=== PATIENT | female | born 1970 | race Caucasian/White ===

== ENCOUNTER → 2016-12-17 | Outpatient (REF) | payer BC | LOC: M LAB REF 17:05 | PROVIDERS: ATTEND Physician Assistant | DX: R35.0 Frequency of micturition (principal) ==

== ENCOUNTER 2017-04-10 01:37 | Emergency (ER) | payer BC ==
[2017-04-10 02:47] LABS: BASO % 0.4 % (0.0-1.0); EOS # 0.2 K/mm3 (0.0-0.50); EOS % 1.8 % (0.0-3.0); LARGE UNSTAINED CELL # 0.1 K/mm3 (0.0-0.4); LARGE UNSTAINED CELL % 1.2 % (0.0-4.0); LYMPH # 2.8 K/mm3 (1.5-4.5); LYMPH % 25.6 % (24.0-44.0); MEAN CORPUSCULAR HEMOGLOBIN 28.7 pg (27.0-33.0); MEAN CORPUSCULAR HGB CONC 33.5 g/dl (32.0-36.5); MEAN CORPUSCULAR VOLUME 85.7 fl (80.0-96.0); MONO # 0.6 K/mm3 (0.0-0.8); MONO % 5.3 % (0.0-5.0); NEUTROPHILS # 6.8 K/mm3 (1.8-7.7); NEUTROPHILS % 65.8 % (36.0-66.0); PLATELET COUNT, AUTOMATED 219 k/mm3 (150-450); RED CELL DISTRIBUTION WIDTH 13.3 % (11.5-14.5); WHITE BLOOD COUNT 10.3 K/mm3 (4.0-10.0)
[2017-04-10 03:10] LABS: ANION GAP 6 MEQ/L (8-16); BLOOD UREA NITROGEN 18 MG/DL (7-18); CALCIUM LEVEL 8.9 MG/DL (8.5-10.1); CARBON DIOXIDE LEVEL 24 MEQ/L (21-32); CHLORIDE LEVEL 113 MEQ/L (98-107); CREATININE FOR GFR 0.59 MG/DL (0.55-1.02); GLOMERULAR FILTRATION RATE > 60.0 (>58); GLUCOSE, FASTING 109 MG/DL (70-105); POTASSIUM SERUM 3.8 MEQ/L (3.5-5.1); SODIUM LEVEL 143 MEQ/L (136-145)
[2017-04-10] MEDS ORDERED: ISOVUE-370 76% 100ML VIAL (Q9967) As Ordered ONE (03:28)
--- NOTE | 2017-04-10 05:08 | REP ---
Clinical: Acute chest pain. Technique: Axial contrast enhanced images from the thoracic inlet to the upper abdomen using 100 ml Isovue 370 intravenous contrast material with coronal and sagittal re-formations. Findings: Satisfactory enhancement of the pulmonary vasculature is achieved and no filling defects are identified to suggest pulmonary embolus. Thoracic aorta is normal caliber without aneurysm or dissection. Heart and pericardium are normal. Bilateral lung gallagher are well aerated and without acute pulmonary parenchymal consolidation or atelectasis. Mild bronchitis cannot be excluded. No nodule or mass lesion. No pleural effusion/reaction. No pneumothorax. No adenopathy. Impression: No evidence for pulmonary embolus. Mild bronchitis cannot be excluded. No definite acute pleuroparenchymal or mediastinal process. Signed by Luis Young MD 04/10/2017 04:58 A
[2017-04-10 06:28] VITALS: BP 149/87
[2017-04-10] MEDS ORDERED: NORCO 5/325MG TABLET (BULK FOR ED) PO ONE (06:30)
--- NOTE | 2017-04-11 09:11 | ECGEPIP ---
Stationary ECG Study [facility] - ED Test Date: 2017-04-10 Pat Name: JANIE TENORIO Department: Room: - Gender: F Range Aide: clotilde : 1970 Requested By: KIERRA Hoskins Order Number: [id number] Reading MD: Mee Lee Measurements Intervals [place] Rate: 100 P: 48 ID: [id number] QRS: 3 QRSD: 102 T: 38 QT: 335 QTc: 433 Interpretive Statements SINUS TACHYCARDIA POSSIBLE LEFT ATRIAL ENLARGEMENT ABNORMAL RHYTHM ECG NO PRIOR FOR COMPARISON Electronically Signed On 04-11-2017 9:10:37 EDT by Mee Lee
--- NOTE | 2017-04-11 09:13 | ECGEPIP ---
Stationary ECG Study [facility] - ED Test Date: 2017-04-10 Pat Name: JANIE TENORIO Department: Room: - Gender: F Certified Medical Aide: tk : 1970 Requested By: KIERRA Hoskins Order Number: [id number] Reading MD: Mee Lee Measurements Intervals [place] Rate: 86 P: 52 [place]: 171 QRS: 19 QRSD: 103 T: 37 QT: 353 QTc: 424 Interpretive Statements SINUS RHYTHM DECREASED RATE 1:49 Electronically Signed On 04-11-2017 9:12:59 EDT by Mee Lee
[2017-06-13] MEDS ORDERED: METO50TA7 PO (14:59)
[2017-06-13] MEDS ORDERED: LOSA100T36 PO (14:59)
[2017-06-13] MEDS ORDERED: IBUP-1022 PO (14:59)
== END 2017-04-10 07:02 | disposition home or self-care (01) ==
LOC: M ED 03:35
DX: R07.89 Other chest pain (principal); I10 Essential (primary) hypertension; Z82.49 Family history of ischemic heart disease and other diseases of the circulatory system
CPT/HCPCS: 36415; 71275; 80048; 82550; 82553; 85025; 93005; 93041; 94760; 99285; Q9967

== ENCOUNTER 2017-06-20 07:39 | Day surgery (SDC) | payer BC ==
[2017-06-20] VITALS (8 sets, daily range): BP systolic 140–200; BP diastolic 78–118
[~2017-06-20] VITALS: Ht 165.1 cm; Wt 98.4 kg
[~2017-06-20 07:39] MED LIST: IBUP-1022 PO; LOSA100T36 PO; METO50TA7 PO
[2017-06-20] MEDS ORDERED: LR 1,000 ML IV SCH ×2 (08:00→13:45)
[2017-06-20] MEDS ORDERED: LR 1,000 ML IV ONE (08:00)
[2017-06-20 08:10] LABS: MEAN CORPUSCULAR HEMOGLOBIN 29.5 pg (27.0-33.0); MEAN CORPUSCULAR HGB CONC 33.9 g/dl (32.0-36.5); MEAN CORPUSCULAR VOLUME 86.9 fl (80.0-96.0); RED CELL DISTRIBUTION WIDTH 14.1 % (11.5-14.5); WHITE BLOOD COUNT 10.1 K/mm3 (4.0-10.0)
[2017-06-20] MEDS ORDERED: METOPROLOL SUCC (TopROL XL) 50MG **XL** TAB PO SCH (09:00)
[2017-06-20 09:20] LABS: CONTROL LINE UCG INT CTR LINE PRESENT
[2017-06-20] MEDS ORDERED: SCOPOLAMINE 1.5 MG TRANSDERMAL As Ordered ONE (10:36)
[2017-06-20] MEDS ORDERED: SCOPOLAMINE 1.5 MG TRANSDERMAL TOP ONE (10:45)
[2017-06-20] MEDS ORDERED: fentaNYL 250 MCG/5 ML INJECTION (J3010) As Ordered ONE (11:15)
[2017-06-20] MEDS ORDERED: ROCURONIUM BROMIDE 50 MG/5 ML VIAL/SYRINGE As Ordered ONE (11:15)
[2017-06-20] MEDS ORDERED: MIDAZOLAM INJ 2 MG/2 ML VIAL (J2250) As Ordered ONE (11:15)
[2017-06-20] MEDS ORDERED: LIDOCAINE 2% INJ 100 MG/5 ML SDV (FOR ANES.) As Ordered ONE (11:15)
[2017-06-20] MEDS ORDERED: PROPOFOL 200 MG/20 ML VIAL As Ordered ONE (11:15)
[2017-06-20] MEDS ORDERED: GLYCOPYRROLATE INJ 0.2 MG/ML 2 ML VIAL As Ordered ONE (11:15)
[2017-06-20] MEDS ORDERED: NEOSTIGMINE 1MG/ML 5 ML SYRINGE (J2710) As Ordered ONE (11:15)
[2017-06-20] MEDS ORDERED: dexameTHASONE 4 MG/ML 1ML VIAL (J1100) As Ordered ONE (11:16)
[2017-06-20] MEDS ORDERED: ONDANSETRON 4MG/2ML VIAL (J2405) As Ordered ONE (11:16)
[2017-06-20] MEDS ORDERED: KETOROLAC 60 MG/2 ML VIAL (J1885) As Ordered ONE (11:16)
[2017-06-20] MEDS ORDERED: HYDROmorphone HCL 2 MG/ML 1ML VIAL (J1170) As Ordered ONE (12:06)
[2017-06-20] MEDS ORDERED: LIDOCAINE W/EPINEPHRINE 1% 20ML VIAL As Ordered ONE (12:52)
[2017-06-20] MEDS ORDERED: MORPHINE 1MG/ML IN 0.9% NACL 100ML IV BAG As Ordered ONE (13:26)
[2017-06-20] MEDS ORDERED: diphenhydrAMINE INJ 50MG/ML VIAL (J1200) IV PRN (13:45)
[2017-06-20] MEDS ORDERED: NALOXONE INJ 0.4 MG/1 ML VIAL (J2310) IV PRN (13:45)
[2017-06-20] MEDS ORDERED: MORPHINE 2 MG/ML 1ML SYRINGE IV PRN (13:45)
[2017-06-20] MEDS ORDERED: MORPHINE 1MG/ML IN 0.9% NACL 100ML IV BAG IV PRN (13:45)
[2017-06-20] MEDS ORDERED: ONDANSETRON 4MG/2ML VIAL (J2405) IV PRN (13:45)
[2017-06-20] MEDS ORDERED: EPIDURAL/PCA KEYS XX PRN (13:45)
[2017-06-20] MEDS ORDERED: NALBUPHINE HCL 10 MG/ML AMP (J2300) IV PRN (13:45)
[2017-06-20] MEDS ORDERED: fentaNYL 100 MCG/2 ML INJECTION (J3010) IV PRN (13:45)
--- NOTE | 2017-06-20 14:43 | RO ---
DATE OF PROCEDURE: 06/20/2017 PREOPERATIVE DIAGNOSIS: Symptomatic pelvic prolapse. POSTOPERATIVE DIAGNOSIS: Symptomatic pelvic prolapse. PROCEDURE: Total vaginal hysterectomy with bilateral salpingectomy. The patient retained her ovaries. She had a colporrhaphy with anterior and posterior repair and perineorrhaphy and cystourethroscopy. SURGEON: Dr. Lillian Dorantes SHRIMPING BOAT CAPTAIN: ANESTHESIA: General endotracheal anesthesia. DESCRIPTION OF PROCEDURE: Radha was brought to the operating room where sufficient general endotracheal anesthesia was induced, and she was prepped, draped and positioned in the usual sterile fashion with the bladder emptied and the anterior and posterior aspect of the cervix grasped with single toothed tenaculum. A circumferential incision was made around the base of the cervix and the cardinal ligaments were isolated, clamped with Aidee'Jignesh clamps, which were used throughout this portion of the case, and then transected and ligated with #0 Vicryl suture. The uterosacrals were the clamped, transected, and ligated with, of course, the posterior reflection of the peritoneum entered. The bladder was then dissected away anteriorly and the uterine vasculature carefully clamped, transected and ligated in a sequential fashion along the lateral aspect of the uterus until the uteroovarian suspensory ligaments were reached and the round ligaments were reached. Once the top of the broad ligament had been reached at the tubes on the right side, we went ahead and went through that and on the left side we were able to deliver the uterus with the tube attached by carefully clamping of that pedicle. We then went back with the Donna and got the right tube as well, again ligating all of these pedicles with #0 Vicryl and carefully evaluating them and good hemostasis was confirmed. We then moved our attention to the uterosacral colporrhaphy with traction placed on the already marked uterosacral ligaments and the long Allis was used to grab them up high and then two Prolene sutures were placed on both the left and right side and one #0 Vicryl placed on the left and right side, so #2-0 Prolene and #0 Vicryl were used. Three sutures on each side. We then dissected away the rectovaginal septum and of course the pubocervical fascia, and secured the Prolenes and the #0 Vicryl to this in the usual fashion, bringing the #0 Vicryl into the vagina as the lowest stitch and the other on the rectovaginal septum higher. We then katia these up in the first throws on each suture, held them securely and then did cystoscopy where we saw normal jets of urine coming from both ureters and no evidence of suture or surgical injury to the bladder. We went ahead and completed the throws on those sutures and then of course trimmed those off and went ahead and continued some of the posterior dissection, resected some of the redundant tissue posteriorly, closed the vaginal cuff, and then came down toward the introitus. There was still a persistent anterior cystocele. We could really see in the midline, the prolapse was quite evident, but the supports were there laterally so we injected with some 1% Lidocaine with epinephrine, carefully dissected anteriorly the vaginal tissues away from the bladder and then plicated anteriorly with #2-0 Vicryl for the cystocele and anterior repair, and then trimmed posteriorly and did a introital rectocele repair and perineorrhaphy in the usual fashion, posteriorly using the #0 and #2-0 Vicryl. The skin was closed of each of these wounds. There was good hemostasis and approximation at each layer, and then placed the 2 inch vaginal packing and a Coleman catheter and the procedure was ended. Estimated blood loss: About 150 mL. Fluid replacement was crystalloid. Complications: None. Condition and Disposition: Radha tolerated the procedure well and was recovering in the recovery room in good condition.
[2017-06-20] MEDS ORDERED: METOPROLOL TART 50 MG TAB PO ONE (15:00)
[2017-06-20] MEDS: LR 1,000 ML IV SCH ×2 (18:33→22:00)
[2017-06-20] MEDS: NORCO, ANEXSIA 5/325MG TABLET (HYDROcodone/ACETAMINOPHEN) PO PRN (18:50)
[2017-06-20] MEDS ORDERED: NIFEdipine 10 MG CAP PO ONE (19:45)
[2017-06-20] MEDS: IBUPROFEN 600 MG TAB PO PRN (20:16)
[2017-06-21] VITALS: BP 120/68
[2017-06-21] MEDS: NORCO, ANEXSIA 5/325MG TABLET (HYDROcodone/ACETAMINOPHEN) PO PRN ×2 (00:15→08:44)
[2017-06-21 04:00] VITALS: BP 126/73
[2017-06-21] MEDS: IBUPROFEN 600 MG TAB PO PRN (04:21)
[2017-06-21] MEDS: LR 1,000 ML IV SCH (04:21)
[2017-06-21 07:07] LABS: MEAN CORPUSCULAR HEMOGLOBIN 28.8 pg (27.0-33.0); MEAN CORPUSCULAR HGB CONC 34.1 g/dl (32.0-36.5); MEAN CORPUSCULAR VOLUME 84.4 fl (80.0-96.0); RED CELL DISTRIBUTION WIDTH 13.9 % (11.5-14.5); WHITE BLOOD COUNT 15.7 K/mm3 (4.0-10.0)
[2017-06-21 08:00] VITALS: BP 139/84
[2017-06-21 08:44] VITALS: BP 139/84
[2017-06-21] MEDS ORDERED: METOPROLOL SUCC (TopROL XL) 50MG **XL** TAB PO SCH (09:00)
[2017-06-21] MEDS ORDERED: IBUP-1022 PO (09:04)
[2017-06-21] MEDS ORDERED: LORT5TAB PO (09:04)
== END 2017-06-21 10:10 | disposition home or self-care (01) ==
LOC: M SDC 07:39 → M PED 15:30 → M SDC 06-21 10:10
PROVIDERS: ATTEND Obstetrics & Gynecology
DX: N81.4 Uterovaginal prolapse, unspecified (principal); E78.00 Pure hypercholesterolemia, unspecified; F32.9 Major depressive disorder, single episode, unspecified; M54.31 Sciatica, right side; I10 Essential (primary) hypertension; M12.9 Arthropathy, unspecified; Z79.899 Other long term (current) drug therapy
CPT/HCPCS: 36415; 57260; 58291; 84703; 85027; 86850; 86900; 86901; 88309; J0690; J1100; J1170; J1885; J2250; J2405; J2710; J3010

== ENCOUNTER 2020-06-01 09:25 | Inpatient (IN) | payer BC ==
[~2020-06-01 09:25] MED LIST changes: +LORT5TAB PO; -LOSA100T36 PO; +LOSA100T50 PO
[2020-06-01] MEDS ORDERED: CelecoXIB (CeleBREX) 100 MG CAP ONE (09:48)
[2020-06-01] MEDS ORDERED: CelecoXIB (CeleBREX) 100 MG CAP As Ordered ONE (09:48)
[2020-06-01] MEDS ORDERED: GABAPENTIN 300 MG CAP As Ordered ONE (09:48)
[2020-06-01] MEDS ORDERED: PERCOCET 5MG/325MG TAB ONE (09:48)
[2020-06-01] MEDS ORDERED: PERCOCET 5MG/325MG TAB As Ordered ONE (09:48)
[2020-06-01] MEDS ORDERED: GABAPENTIN 300 MG CAP ONE (09:48)
[2020-06-01] MEDS ORDERED: ceFAZolin 2 GM/D5W 50 ML IV BAG (J0690 PER 500MG) ONE (09:48)
[2020-06-01] MEDS ORDERED: ceFAZolin 2 GM/D5W 50 ML IV BAG (J0690 PER 500MG) As Ordered ONE ×2 (09:48→17:32)
[2020-06-01] MEDS ORDERED: propofoL 200 MG/20 ML VIAL As Ordered ONE ×6 (10:59→16:36)
[2020-06-01] MEDS ORDERED: MIDAZOLAM INJ 2MG/2ML VIAL (J2250 PER 1MG) As Ordered ONE (10:59)
[2020-06-01] MEDS ORDERED: fentaNYL 250 MCG/5 ML INJECTION (J3010) As Ordered ONE (10:59)
[2020-06-01] MEDS ORDERED: dexameTHASONE 4 MG/ML 1ML VIAL (J1100 PER 1MG) As Ordered ONE (10:59)
[2020-06-01] MEDS ORDERED: SUGAMMADEX SODIUM 500 MG/5 ML VIAL (BRIDION) As Ordered ONE (10:59)
[2020-06-01] MEDS ORDERED: LIDOCAINE 2% 100MG/5ML SDV (FOR ANES.) As Ordered ONE (10:59)
[2020-06-01] MEDS ORDERED: ONDANSETRON 4MG/2ML VIAL As Ordered ONE ×2 (10:59→18:28)
[2020-06-01] MEDS ORDERED: METOCLOPRAMIDE INJ 10MG/2ML VIAL (J2765 PER 1) As Ordered ONE ×2 (10:59→18:28)
[2020-06-01] MEDS ORDERED: ROCURONIUM BROMIDE 50 MG/5 ML VIAL As Ordered ONE ×2 (10:59→13:47)
[2020-06-01] MEDS ORDERED: REMIFENTANIL 1MG 3ML VIAL As Ordered ONE ×4 (11:51→16:39)
[2020-06-01] MEDS ORDERED: THROMBIN SOLN 20,000 UNITS KIT As Ordered ONE (11:52)
[2020-06-01] MEDS ORDERED: LIDOCAINE W/EPINEPHRINE 1% 20ML VIAL As Ordered ONE (11:52)
[2020-06-01] MEDS ORDERED: BUPIVACAINE/EPIN 0.25% 30 ML VIAL As Ordered ONE (11:52)
[2020-06-01] MEDS ORDERED: BUPIVACAINE LIPOSOME/PF 1.3% 20ML VIAL (13.3MG/ML)(EXPAREL)(C9290 PER1MG) As Ordered ONE (11:53)
[2020-06-01] MEDS ORDERED: BACITRACIN PWD 50,000 UNITS VIAL As Ordered ONE (11:53)
[2020-06-01] MEDS ORDERED: BUPIVACAINE HCL 0.5% 10ML VIAL As Ordered ONE (11:53)
[2020-06-01] MEDS ORDERED: SUCCINYLCHOLINE 100 MG/5 ML SYRINGE (J0330) As Ordered ONE (11:58)
[2020-06-01] MEDS ORDERED: TRANEXAMIC ACID 100 MG/ML 10ML VIAL As Ordered ONE (12:17)
[2020-06-01] MEDS ORDERED: EPINEPHrine INJ 1 MG/ML 1ML AMP As Ordered ONE (12:17)
[2020-06-01] MEDS ORDERED: GLYCOPYRROLATE INJ 0.2 MG/ML 2 ML VIAL As Ordered ONE (13:35)
[2020-06-01] MEDS ORDERED: ePHEDrine SULFATE 25 MG/5 ML(5MG/ML) SYRINGE As Ordered ONE (13:55)
[2020-06-01] MEDS ORDERED: PHENYLephrine HCL 500 MCG/5 ML (100MCG/ML) SYRINGE (J2370) As Ordered ONE ×2 (13:55→16:45)
[2020-06-01] MEDS ORDERED: oxyCODONE 5MG TAB ONE ×2 (18:28→19:06)
[2020-06-01] MEDS ORDERED: METOCLOPRAMIDE INJ 10MG/2ML VIAL (J2765 PER 1) ONE (18:28)
[2020-06-01] MEDS ORDERED: fentaNYL 100 MCG/2 ML INJECTION (J3010) ONE (18:28)
[2020-06-01] MEDS ORDERED: fentaNYL 100 MCG/2 ML INJECTION (J3010) As Ordered ONE (18:28)
[2020-06-01] MEDS ORDERED: ONDANSETRON 4MG/2ML VIAL ONE (18:28)
[2020-06-01] MEDS ORDERED: GABAPENTIN 100 MG CAP As Ordered ONE (18:29)
[2020-06-01] MEDS ORDERED: GABAPENTIN 100 MG CAP ONE (18:29)
[2020-06-01] MEDS ORDERED: oxyCODONE 5MG TAB As Ordered ONE ×2 (18:29→19:06)
[2020-06-01] MEDS ORDERED: METOPROLOL TART 50 MG TAB As Ordered ONE (22:40)
[2020-06-01] MEDS ORDERED: CYCLOBENZAPRINE 10MG TABLET ONE (22:40)
[2020-06-01] MEDS ORDERED: METOPROLOL TART 50 MG TAB ONE (22:40)
[2020-06-01] MEDS ORDERED: CYCLOBENZAPRINE 10MG TABLET As Ordered ONE (22:40)
[2020-06-02] MEDS ORDERED: PERCOCET 5MG/325MG TAB ONE ×3 (02:30→19:56)
[2020-06-02] MEDS ORDERED: ceFAZolin 2 GM/D5W 50 ML IV BAG (J0690 PER 500MG) ONE ×2 (02:30→09:15)
[2020-06-02] MEDS ORDERED: PERCOCET 5MG/325MG TAB As Ordered ONE ×3 (02:30→19:56)
[2020-06-02] MEDS ORDERED: ceFAZolin 2 GM/D5W 50 ML IV BAG (J0690 PER 500MG) As Ordered ONE ×2 (02:32→09:14)
[2020-06-02] MEDS ORDERED: METAMUCIL (PSYLLIUM) PACKET As Ordered ONE (09:15)
[2020-06-02] MEDS ORDERED: METOPROLOL TARTRATE 100 MG TAB ONE (09:15)
[2020-06-02] MEDS ORDERED: ASPIRIN 81 MG ENTERIC TAB ONE (09:15)
[2020-06-02] MEDS ORDERED: ASPIRIN 81 MG ENTERIC TAB As Ordered ONE (09:15)
[2020-06-02] MEDS ORDERED: METAMUCIL (PSYLLIUM) PACKET ONE (09:15)
[2020-06-02] MEDS ORDERED: GABAPENTIN 100 MG CAP ONE ×2 (09:15→15:54)
[2020-06-02] MEDS ORDERED: METOPROLOL TARTRATE 100 MG TAB As Ordered ONE (09:15)
[2020-06-02] MEDS ORDERED: GABAPENTIN 100 MG CAP As Ordered ONE ×2 (09:16→16:55)
[2020-06-02] MEDS ORDERED: CYCLOBENZAPRINE 10MG TABLET As Ordered ONE ×2 (10:40→18:54)
[2020-06-02] MEDS ORDERED: CYCLOBENZAPRINE 10MG TABLET ONE ×2 (10:40→15:54)
[2020-06-02] MEDS ORDERED: ACETAMINOPHEN TAB 650MG DOSE (2X325MG) ONE (15:54)
[2020-06-02] MEDS ORDERED: ACETAMINOPHEN TAB 650MG DOSE (2X325MG) As Ordered ONE (15:54)
--- NOTE | 2020-07-14 09:57 | REP ---
HISTORY: Intraoperative imaging. DATE: 06/01/2020 FINDINGS: Two views of the cervical spine are obtained, both cross-table lateral. The initial film is time-stamped 02:44 p.m. and this demonstrates an intraoperative probe at the level of the spinal canal at C4. There is discogenic spurring at C3-C4. An orotracheal tube is noted. The second radiograph from 06/01/2020 is time-stamped 03:53 p.m. This shows an intraoperative probe at the level of the spinal canal at the C3 vertebral body. A retractor device is visible dorsally. MTDD
--- NOTE | 2020-07-30 11:40 | RO ---
DATE OF OPERATION: 06/01/2020 PREOPERATIVE DIAGNOSIS: Cervical spinal stenosis and cervical spondylosis. POSTOPERATIVE DIAGNOSIS: Cervical spinal stenosis and cervical spondylosis. PROCEDURE: C3 cervical laminectomy, C4 cervical laminectomy, C5 cervical laminectomy, C6 cervical laminectomy, C7 cervical laminectomy, initial and additional levels for decompression of the thecal sac and nerve roots, posterior cervical instrumentation, lateral mass screws were applied, C3, 4, 5, 6 and 7 bilaterally, posterior cervical arthrodesis, C3-4, C4-5, C5-6, C6-7, harvest and placement of local bone graft. Application of Cheek tongs. SURGEON: Dudley Daugherty M.D. LIBRARY CIRCULATION DEPARTMENT CHIEF: AXEL Hoff ANESTHESIA: General endotracheal, Rios Garza M.D. COMPLICATIONS: None. 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 Consent reviewed in detail with patient including leroy discussion of the pathology involved, alternatives including doing nothing or second opinions, risks including but not limited to pain, failure, incomplete relief, need for more surgery, failure, infection, paralysis and other issues. The patient agrees to proceed. COMPONENTS USED: Include DePuy Symphony lateral mass cervical screw set, 3.5 mm screws x 12 x 5, 3.5 x 10 screws x #5, 3.5 x 75 mm judi x2 and the appropriate end caps. Also utilized were 10 mL demineralized bone matrix putty, 15 mL crushed cancellous bone graft as well as the local graft which was harvested and placed. DESCRIPTION OF OPERATION: Identified in the holding area, site and side verified. I talked to the patient about the procedure. She still wanted to proceed with the procedure. She was brought to the operating room once anesthesia was administered and neuromonitoring had been set up. We then ran neuromonitoring for baseline neuromonitoring. I identified the Cheek tongs through a Betadine prep and tightened the 2.5 bars. Next, once the Cheek tongs were in place, we carefully log rolled the patient to the operating room table, secured the Cheek tongs, secured the arms at the side, taped the shoulders down, adjusted his neck for positioning, inspected positioning. Once I and the anesthetic and the neurophysiologist were comfortable with the positioning and the neuromonitoring signals were unchanged, we then prepped and draped the patient in the usual fashion for exposure of the cervical spine. This included shaving her head to allow access to the cervical spine at the posterior aspect of the occiput. Next, once she was sterilely prepped and draped, the incision was outlined with a marking pen and infiltrated with 1/4% Marcaine with epinephrine. Once the patient was positioned for portion of the procedure, anesthesia did give muscle relaxant. Next, I conducted the procedure using 3.5 loupe magnification and a head lamp. I stood primarily on the right side of the table but did alternate for marques parts of the procedure with Mr. Chong to the contralateral side of the table. Next, the incision was made with a 10 blade, developed down through skin, subcuticular tissues to the nuchal fascia which was divided. The dissection continued down to the cervical spine, spinous processes. We continued the dissection out over the cervical lamina and we obtained cross table lateral x- rays at this point, verifying our level. This was accomplished by drilling the left lateral mass screw access point and placing a ball-tip guide and once after several x-rays, we verified our levels, we further exposed from the lamina of 3, taking care to preserve as much soft tissue as possible to the rostral aspect of the cervical spinous process and exposed down to the spinous process of 7 and lamina of 7. Next, once the cervical spine was exposed, a Shadow-Line retractor was installed and bipolar cautery was utilized for hemostasis. Irrigation was accomplished. Next, I inspected the lamina of 7. The lamina of 7 followed a similar plane through the lamina of 6 and I felt that at this level in this patient, a lateral mass screw could be implemented rather than the pedicle screw. Next, the starting point for the lateral mass screws were drilled using a 2 mm drill bilaterally at 3, 4, 5, 6 and 7. Once this was accomplished, the lateral mass screw drill holes were tapped using the tap for the 3.5 screws. Next, once this was accomplished, I utilized the 4 mm high-speed drill bit to implement a cervical laminectomy beginning where the lamina joins the lateral mass at C4, extending inferiorly into the lamina of 7 and then superiorly into the lamina of 3 and then I switched positions with Mr. Chong. We had removed the spinous processes using Leksells and I drilled the laminectomy in a linear fashion along the right lamina. The lamina at this point sprung backwards. I was able to remove the lamina using #1 Kerrisons, exposing the thecal sac and spinal cord which was directly visualized. The lamina was carefully removed. The lamina bone was removed and retained for bone graft along with the spinous processes. Next, a foraminotomy was accomplished bilaterally at C5-6. Bleeding was controlled with thrombin Gelfoam at the foraminotomy site. Next, irrigation was accomplished. Next, I then placed the lateral mass screws. I placed 10 mm screws at C7 bilaterally, a 10 mm screw on the left at C3, 10 mm screws bilaterally at C4, 12 mm screw on the right at C3 and the remaining screws were 12 mm. Next, I placed the 75 mm precontoured 3.5 judi bilaterally and secured it with the appropriate end caps. It compressed at C3-4, implementing some additional some additional cervical lordosis there and at C4-5. Next, all screw purchases were excellent. Next, end caps were torqued using the torque, counter- torque device. Irrigation was accomplished. The posterior cervical fascia was then after inspection, the lateral masses were decorticated using a high-speed bur. Local bone graft mixed with cancellous bone and DBX was placed over the lateral masses from C3 through C7 bilaterally. The retractor was removed. The posterior cervical fascia was reapproximated using interrupted stitch through the nuchal fascia and deep dermis. Next, Prineo dressing was then applied posteriorly. Next, at this stage, the patients muscle relaxer had been allowed to deplete and neuromonitoring was checked and no appreciable change. Next, once this was accomplished, I controlled the Cheek tongs and we logrolled the patient back to the hospital bed and removed the Cheek tongs. Next, at this stage, additional neuromonitoring checks were implemented and we appreciated no significant changes. The patient was able to be extubated. She was placed in an [place] cervical collar and moved to the recovery room in good condition, moving all four extremities. The patient was conversant in the recovery room. Mr. Chong was present and participated in the entirety of the case and capacity of first officer. I was present for the entirety of the case including applying the Cheek tongs to the patients skull, transfer of the patient the operating table and moving the patient back and removing the Cheek tongs. For further details, please refer to the medical record. SKYLER
== END 2020-06-02 19:10 | disposition home or self-care (01) | DRG 321 ==
LOC: M ED 09:25 → M MS5PR 11:00
PROVIDERS: ADMIT Orthopaedic Surgery; ATTEND Orthopaedic Surgery
PROC: 0RG20A0 Fusion of 2 or more Cervical Vertebral Joints with Interbody Fusion Device, Anterior Approach, Anterior Column, Open Approach (ICD-10-PCS; principal; 2020-06-01)
PROC: 0RB30ZZ Excision of Cervical Vertebral Disc, Open Approach (ICD-10-PCS; 2020-06-01)
PROC: 01N10ZZ Release Cervical Nerve, Open Approach (ICD-10-PCS; 2020-06-01)
DX: M47.892 Other spondylosis, cervical region (principal); I10 Essential (primary) hypertension

== ENCOUNTER → 2021-06-29 | Outpatient (CLI) | payer BC ==
--- NOTE | 2021-06-29 14:55 | REPVR ---
PROCEDURE INFORMATION: Exam: MR Lumbar Spine Without Contrast Exam date and time: 06/29/2021 9:16 AM Age: 51 years old Clinical indication: Low back pain. TECHNIQUE: Imaging protocol: Multiplanar magnetic resonance images of the lumbar spine without intravenous contrast. COMPARISON: No relevant prior studies available. FINDINGS: Vertebrae: Unremarkable. Spinal cord: Normal signal. No cord compression. L1-L2: No significant disc disease. No significant spinal canal stenosis. No neural foraminal stenosis. L2-L3: There is mild retrolisthesis at this level. There is degenerative disc disease including disc space narrowing and dessication. There is a moderate disc bulge with a small superimposed central disc herniation. Disc bulging extends into both neural foramen causing moderate bilateral neural foraminal narrowing. There is facet arthropathy and ligamentum flavum hypertrophy. There is mild spinal canal stenosis. L3-L4: There is mild retrolisthesis at this level. There is disc space narrowing and desiccation. There are moderate degenerative end plate changes at this level. There is a moderate disc bulge with a small superimposed central disc herniation. There is a superimposed right foraminal disc herniation. There is moderate bilateral neural foraminal narrowing, right worse than left. There is facet arthropathy and ligamentum flavum hypertrophy. There is moderate spinal canal stenosis. L4-L5: There is mild retrolisthesis at this level. There is disc space narrowing and desiccation. There are moderate degenerative end plate changes at this level. There is a moderate disc/osteophyte complex that flattens the ventral thecal sac. There is a large broad-based left subarticular/foraminal disc herniation that causes significant compromise of the left lateral recess and severe narrowing of the left neural foramen. The disc herniation abuts the exiting left L4 nerve root and descending left L5 nerve root. There is exuberant facet arthropathy and ligamentum flavum hypertrophy. There is moderate spinal canal stenosis. L5-S1: There is disc space narrowing and desiccation. There are moderate degenerative end plate changes at this level. There is a moderate disc/osteophyte complex that flattens the ventral thecal sac. There is a small central disc protrusion. There is moderate bilateral neural foraminal narrowing, right worse than left. There is exuberant bilateral facet arthropathy and ligamentum flavum hypertrophy, right worse than left. Soft tissues: Unremarkable. Other findings: There is congenital spinal canal stenosis which is exacerbated by multilevel degenerative changes. IMPRESSION: 1. There is congenital spinal canal stenosis which is exacerbated by multilevel degenerative changes. There is a large left subarticular/foraminal disc herniation at L4/5. Additional disc herniations are noted. There is multilevel neural foraminal stenosis. Please see details above. Electronically signed by: Devin Zuluaga On 06/29/2021 14:54:45 PM
== END ==
LOC: M PLAIMG 08:28
PROVIDERS: ATTEND Physician Assistant
DX: R93.7 Abnormal findings on diagnostic imaging of other parts of musculoskeletal system (principal); M51.36 Other intervertebral disc degeneration, lumbar region

== ENCOUNTER → 2022-05-10 | Outpatient (CLI) | payer BC ==
[~2022-05-10] MED LIST changes: +LOSA100T45 PO; -LOSA100T50 PO
[2022-05-10 18:11] LABS: FREE T4 0.96 NG/DL (0.76-1.46); THYROID STIMULATING HORMONE 2.51 uIU/ML (0.358-3.740)
== END ==
LOC: M PLALAB 15:57
PROVIDERS: ATTEND Internal Medicine Endocrinology, Diabetes & Metabolism
DX: E03.9 Hypothyroidism, unspecified (principal)

== ENCOUNTER → 2022-07-04 | Outpatient (CLI) | payer BC ==
[2022-07-04 13:58] LABS: BASO # 0.1 10^3/uL (0.0-0.2); BASO % 0.7 % (0.0-1.0); EOS # 0.2 10^3/uL (0.0-0.5); EOS % 2.4 % (0.0-3.0); HEMOGLOBIN 14.2 g/dl (12.0-15.5); LYMPH # 1.8 10^3/uL (1.5-5.0); LYMPH % 23.7 % (24.0-44.0); MEAN CORPUSCULAR HEMOGLOBIN 28.9 pg (27.0-33.0); MEAN CORPUSCULAR HGB CONC 32.3 g/dl (32.0-36.5); MEAN CORPUSCULAR VOLUME 89.6 fl (80.0-96.0); MONO # 0.8 10^3/uL (0.0-0.8); MONO % 10.4 % (2.0-8.0); NEUTROPHILS # 4.6 10^3/uL (1.5-8.5); NEUTROPHILS % 62.4 % (36.0-66.0); PLATELET COUNT, AUTOMATED 229 10^3/uL (150-450); RED BLOOD COUNT 4.91 10^6/uL (4.00-5.40); WHITE BLOOD COUNT 7.4 10^3/uL (4.0-10.0)
[2022-07-04 14:43] LABS: ERYTHROCYTE SEDIMENTATION RATE 30 mm/hr (0-30)
[2022-07-04 14:55] LABS: C REACTIVE PROTEIN QUANTITATIV 1.13 MG/DL (0.00-0.30); RHEUMATOID FACTOR QUANT < 10.0 IU/ML (<15.0)
[2022-07-05 15:11] LABS: ANTINUCLEAR ANTIBODIES DIRECT Negative (Negative)
== END ==
LOC: M PLALAB 11:12
PROVIDERS: ATTEND Orthopaedic Surgery
DX: M17.12 Unilateral primary osteoarthritis, left knee (principal); S83.242A Other tear of medial meniscus, current injury, left knee, initial encounter; X58.XXXA Exposure to other specified factors, initial encounter; Y92.9 Unspecified place or not applicable; Y93.9 Activity, unspecified; Y99.9 Unspecified external cause status

== ENCOUNTER → 2023-07-26 | Outpatient (REF) ==
[~2023-07-26] MED LIST changes: -LOSA100T45 PO; +LOSA100T46 PO
== END ==
LOC: M PLAIMG 14:24
PROVIDERS: ATTEND Internal Medicine
DX: M13.80 Other specified arthritis, unspecified site (principal)

== ENCOUNTER → 2023-09-07 | Outpatient (CLI) | payer OTHER ==
[2023-09-07 16:21] LABS: FOLLICLE STIMULATING HORMONE 70.4 mIU/ML
[2023-09-07 16:22] LABS: LUTEINIZING HORMONE 37.6 mIU/ML
== END ==
LOC: M PLALAB 14:38
PROVIDERS: ATTEND Internal Medicine Endocrinology, Diabetes & Metabolism
DX: E03.9 Hypothyroidism, unspecified (principal); N95.1 Menopausal and female climacteric states

== ENCOUNTER → 2023-12-18 | Outpatient (CLI) | payer OTHER ==
[2023-12-18 19:03] LABS: THYROID STIMULATING HORMONE 9.089 uIU/ML (0.55-4.78)
[2023-12-18 19:04] LABS: FREE T4 0.92 NG/DL (0.89-1.76)
== END ==
LOC: M PLALAB 15:01
PROVIDERS: ATTEND Internal Medicine Endocrinology, Diabetes & Metabolism
DX: E03.9 Hypothyroidism, unspecified (principal)